=== PATIENT | male | born 1970 | race African-American/Black ===

== ENCOUNTER 2016-04-15 12:11 | Emergency (ER) ==
[2016-04-15] MEDS ORDERED: ASPIRIN PO STA (12:13)
--- NOTE | 2016-04-15 12:29 | EKG Report ---
Test Performed on : 04/15/2016 12:18:35 PM Test Reason : CP Blood Pressure : / mmHG Vent. Rate : 094 BPM Atrial Rate : 094 BPM P-R Int : 176 ms QRS Dur : 072 ms QT Int : 566 ms P-R-T Axes : 044 062 -81 degrees QTc Int : 707 ms Normal sinus rhythm. T wave abnormality, consider inferior ischemia Prolonged QT Abnormal ECG No previous ECGs available Unconfirmed Result
--- NOTE | 2016-04-15 12:37 | PROVIDER DOCUMENTATION ---
HPI-Chest Pain - General Stated Complaint: CHEST PAIN Time Seen by Provider: 04/15/16 12:24 Source: patient Allergies/Adverse Reactions: Patient Allergies Allergy/AdvReac Type Severity Reaction Status Date / Time No Known Allergies Allergy Verified 04/03/16 07:08 - History of Present Illness-CP Nature of Presenting Problem: Pt presents to the ER with complaint of pain to post-op scar. Pt had bypass surgery four days ago and ran out of pain medication. Pt denies any cardiac chest pains. Onset/Duration: 4 days ago Timing: still present Review of Systems - Adult - REVIEW OF SYSTEMS - ADULT Constitutional: denies: chills, fever Eyes: reports: no symptoms reported Ears, Nose, Mouth & Throat: reports: no symptoms reported Cardiovascular: reports: no symptoms reported Respiratory: reports: no symptoms reported Gastrointestinal: reports: no symptoms reported Genitourinary: reports: no symptoms reported Musculoskeletal: reports: no symptoms reported Integumentary: reports: other (pain at scar site) Neurological: reports: no symptoms reported Psychiatric: reports: no symptoms reported Endocrine: reports: no symptoms reported Hematologic/Lymphatic: reports: no symptoms reported Allergic/Immunologic: reports: no symptoms reported All Other Systems: Reviewed and Negative Past History - Adult - PAST MEDICAL HISTORY-ADULT Review of Records: reports: Nursing Assessment Review, Medications Reviewed Cardiovascular: reports: HTN - PRIOR SURGERIES/PROCEDURES Surgical/Procedure History: reports: none - IMMUNIZATION STATUS Childhood Immunizations: See Nurse Assessment Flu Vaccine: See Nurse Assessment Physical Exam-General - CONSTITUTIONAL General Appearance: alert, no apparent distress - EYES Eyes: PERRL/EOMI, pink conjunctivae - HEAD, EARS, NOSE, MOUTH & THROAT HENMT: normocephalic/atraumatic, normal ENT inspection - NECK Neck: non-tender, supple - RESPIRATORY Respiratory: no pleuratic chest pain, no respiratory distress - CARDIOVASCULAR Cardiovascular: normal peripheral pulses, regular rate, rhythm - MUSCULOSKELETAL Back Exam: no CVA tenderness, no vertebral tenderness Extremity: normal range of motion, normal gait - SKIN Integumentary: normal color, warm/dry - NEUROLOGIC Neurologic: grossly normal, no motor/sensory deficits - PSYCHIATRIC Psych/Mental Status: normal mood/affect, normal thought content, normal thought process, oriented x 3 Progress - PLAN OF CARE/RESULTS Progress/Plan/Lab Results: Vital Signs - 24 hr 04/15/16 12:15 Temperature 97.8 F Pulse Rate 91 H Respiratory 18 Rate Blood Pressure 111/77 O2 Sat by Pulse 99 Oximetry Orders Category Date Time Status Cardiac Monitoring DIRECTED Care 04/15/16 12:13 Inactive Oxygen Therapy- ED Nursing DIRECTED Care 04/15/16 12:13 Inactive Saline Loc NOW Care 04/15/16 12:13 Inactive Aspirin Med 04/15/16 12:13 Discontinued 325 mg PO STAT STA EKG [EKG] Stat Ther 04/15/16 12:13 Draft - EKG 1 Time of EKG reading by physician:: 12:18 EKG Read and Signed by:: Reynaldo Machuca EKG Interpretation (*Must complete 3 of following elements*): Normal Rate: 94 Rhythm: normal sinus rhythm [place]: normal QRS: normal [place] Interval: normal ST Wave: normal Departure - Departure Time of Disposition Order: 12:38 DIAGNOSIS: Medication requested Disposition: HOME 01 Certified Medical Emergency: Emergent Condition: Stable Prescriptions: Oxycodone HCl/Acetaminophen [Percocet 7.5-325 mg Tablet] 1 each PO Q6-8H PRN PRN #20 tablet PRN Reason: Pain Referrals: David Strong MD [Primary Care Provider] - Attestation - Scribe Verification/Attestation Scribe:: Aimee Crawford Acting as Scribe for:: Reynaldo Machuca Scribe documention review:: This chart was documented by a scribe and accurately reflects the service the provider performed and the decisions made by the provider.
[2016-04-15 12:38] VITALS: BP 111/77
== END 2016-04-15 13:15 | disposition home or self-care (01) ==
LOC: P.ED 12:11
DX: Z76.0 Encounter for issue of repeat prescription (principal); Z98.890 Other specified postprocedural states; I10 Essential (primary) hypertension; Z79.899 Other long term (current) drug therapy
CPT/HCPCS: 93005; 99283